=== PATIENT | male | born 1990 | race Caucasian/White ===

== ENCOUNTER 2024-03-27 10:40 | Observation (INO) ==
--- NOTE | 2024-03-27 11:13 | Emergency Department Note ---
History of Present Illness General Chief complaint: Back Injury/Pain Stated complaint: BACK PAIN, UNABLE TO AMBULATE Time Seen by Provider: 03/27/24 10:45 History of Present Illness Maximum Pain Intensity: 7 NAME: NILSA OLMOS AGE: 33 SEX: M : 1990 ARRIVES VIA: Ambulance INFORMANT: Patient ED PROVIDER(S): FABBY Patel, Kailash Garcia MD The patient is a 33-year-old male who arrives to the emergency department for evaluation of diffuse low back pain. He reports he pulled his low back a few weeks ago, and states he has been having some left hip pain. He reports his left hip was tight yesterday while he was at [facility] [employer], he states he was attempting to hold onto the railing on the dock and stretch his back when he began to have a severe spasm. He reports he went home, and last night over the night it became significantly worse. He reports at this time he is unable to ambulate on his own. He denies any numbness or tingling of his lower extremities, groin, or loss of bowel or bladder. He has full strength in bilateral lower extremities, he is neurovascularly intact. Home Medications Medication Instructions Recorded Confirmed Type cholecalciferol (vitamin D3) 125 125 mcg PO DAILY 03/27/24 03/27/24 History mcg (5,000 unit) tablet (Vitamin D3) clonazepam 0.5 mg tablet 0.5 mg PO HS PRN Anxiety 03/27/24 03/27/24 History ibuprofen 200 mg tablet 600 mg PO DIRECTED PRN Pain 03/27/24 03/27/24 History magnesium 250 mg tablet 250 mg PO DAILY 03/27/24 03/27/24 History multivitamin 1 tab PO DAILY 03/27/24 03/27/24 History Allergies Allergy/AdvReac Type Severity Reaction Status Date / Time methylphenidate Allergy Unknown HAPPENED Verified 03/27/24 15:22 [From Ritalin] 25 YEARS AGO, CAN'T REMEMBER Past Med/Surg History Problem List (Updated 03/27/24 @ 15:58 by FABBY Talbert) Intractable back pain (Acute) Ambulatory dysfunction (Acute) Strain of lumbar region (Acute) Social History Smoking Status: Unknown if ever smoked Feels Safe at Home: Yes Physical Exam Vital Signs Vital Signs - 24 hr 03/27/24 10:56 03/27/24 10:56 03/27/24 12:35 Temperature 37.2 C Temperature Source Oral Pulse Rate 73 Pulse Rate [Finger] 66 Pulse Rhythm Regular Pulse Rhythm [Finger] Pulse Strength Normal Respiratory Rate 18 18 18 Respiratory Effort / Characteristics Non-Labored Non-Labored Respiratory Depth Normal Normal Respiratory Pattern Blood Pressure 140/97 Blood Pressure [Right Arm] 126/69 Blood Pressure Mean 111 Blood Pressure Mean [Right Arm] 88 Pulse Oximetry 98 97 Oxygen Delivery Method Room Air Sepsis Recent Fever Within 48 Hours No Sepsis New/Unexplained Change in Mental Status No Sepsis Action Taken by Nursing No Action Required 03/27/24 15:33 Temperature Temperature Source Pulse Rate Pulse Rate [Finger] 109 H Pulse Rhythm Pulse Rhythm [Finger] Regular Pulse Strength Respiratory Rate 18 Respiratory Effort / Characteristics Non-Labored Respiratory Depth Normal Respiratory Pattern Regular Blood Pressure Blood Pressure [Right Arm] 137/75 Blood Pressure Mean Blood Pressure Mean [Right Arm] 95 Pulse Oximetry 98 Oxygen Delivery Method Room Air Sepsis Recent Fever Within 48 Hours Sepsis New/Unexplained Change in Mental Status Sepsis Action Taken by Nursing VITALS: Vitals are noted on the nurse's note and reviewed by myself. Vital signs stable. GENERAL: 33-year-old male, in no acute distress, nondiaphoretic, well-developed well-nourished. SKIN: The skin was without rashes, erythema, edema, or bruising. HEAD: Normocephalic atraumatic. HEART: Regular rate and rhythm without murmurs gallops or rubs. LUNGS: Clear to auscultation bilaterally without wheezes, rales or rhonchi. No retractions or accessory muscle use. ABDOMEN: Positive bowel sounds x 4. Soft, nontender, without masses or organomegaly. Hamlin sign negative. No guarding or rebound tenderness. MUSCULOSKELETAL: Bilateral straight leg raise positive, no loss of sensation bilaterally, full strength bilaterally, distal pulses intact, full range of motion left hip, full range of motion right hip, flexion and extension, rotation of lumbar spine painful. NEURO: Patient was alert and oriented to person place and time. No focal neurological deficits. Course Administered Medications Discontinued Medications Acetaminophen (Acetaminophen 500 Mg Tab) 1,000 mg PO NOW STA Stop: 03/27/24 11:20 Last Admin: 03/27/24 11:38 Dose: 1,000 mg Documented By: NILAM Cyclobenzaprine HCl (Cyclobenzaprine Hcl 10 Mg Tab) 10 mg PO NOW STA Stop: 03/27/24 11:20 Last Admin: 03/27/24 11:38 Dose: 10 mg Documented By: NILAM Dexamethasone Sodium Phosphate (DexamethasonePf 10 Mg/Ml Vial) 10 mg IV NOW ONE Stop: 03/27/24 11:36 Last Admin: 03/27/24 11:42 Dose: 10 mg Documented By: NILAM Ketorolac Tromethamine (Ketorolac Tromethamine 15 Mg/Ml Vial) 10 mg IV ONE STA Stop: 03/27/24 11:20 Last Admin: 03/27/24 11:37 Dose: 10 mg Documented By: NILAM Lidocaine (Lidocaine 5% 1 Patch) 1 patch TD NOW STA Stop: 03/27/24 11:21 Last Admin: 03/27/24 11:42 Dose: 1 patch Documented By: NILAM Morphine Sulfate (Morphine Sulfate 4 Mg/Ml 1 Ml Carp\Vial) 4 mg IV NOW STA Stop: 03/27/24 15:27 Last Admin: 03/27/24 15:32 Dose: 4 mg Documented By: CEFERINO Oxycodone HCl (Oxycodone Hcl Ir 5 Mg Tab (Immediate Release)) 5 mg PO NOW STA Stop: 03/27/24 11:20 Last Admin: 03/27/24 11:38 Dose: 5 mg Documented By: NILAM Medical Decision Making Differential Diagnosis Musculoskeletal, disc herniation, fracture, metastatic disease, cord compression, discitis, sciatica, cauda equina, infection, aortic disease, renal colic, gastrointestinal, as well as other pathologies. Medical Records Attestation: I reviewed the patient's medical records. Home Medications Current Medication List: was personally reviewed by me Laboratory Data Attestation: I reviewed the patient's lab results. No leukocytosis, stable hemoglobin and hematocrit, no significant electrolyte abnormalities, urinalysis negative for infection. 03/27/24 11:50 03/27/24 11:50 Lab Results 03/27/24 03/27/24 Range/Units 11:30 11:50 WBC 8.35 (4.8-10.8) K/ul RBC 5.23 (4.70-6.10) M/uL Hgb 16.0 (14.0-18.0) g/dl Hct 45.3 (42.0-52.0) % MCV 86.6 (80.0-100.0) fL MCH 30.6 (25.0-34.0) pg MCHC 35.3 (32.0-36.0) g/dL RDW Std Deviation 38.0 (36.4-46.3) fL RDW Coeff of Maribeth 12.1 (11.5-14.5) % Plt Count 278 (130-400) K/uL MPV 10.3 (9.4-12.4) fL Immature Gran % (Auto) 0.6 % Neut % (Auto) 71.0 % Lymph % (Auto) 20.2 % [place] % (Auto) 6.1 % Eos % (Auto) 1.4 % Baso % (Auto) 0.7 % Neut # (Auto) 5.92 (1.40-6.50) K/uL Lymph # (Auto) 1.69 (1.20-3.40) K/uL [place] # (Auto) 0.51 (0.11-0.59) K/uL Eos # (Auto) 0.12 (0.00-0.50) K/uL Baso # (Auto) 0.06 (0.00-0.20) K/uL Immature Gran # (Auto) 0.05 (0.01-0.20) K/uL Sodium 138 (136-145) mmol/L Potassium 3.9 (3.5-5.1) mmol/L Chloride 105 (98-107) mmol/L Carbon Dioxide 27 (21-32) mmol/L Anion Gap 6 (3-11) BUN 13 (6-23) mg/dl Creatinine 0.92 (0.6-1.4) mg/dl Est Cr Clr Drug Dosing 142.4 ml/min Est GFR ( Amer) 127.1 ml/min Est GFR (Non-Af Amer) 109.7 ml/min BUN/Creatinine Ratio 14.1 (10-20) Glucose 106 H (70-99(Fasting)) mg/dl Calcium 9.4 (8.6-10.3) mg/dl Urine Color Yellow Urine Appearance Clear (Clear) Urine pH 7.0 (4.5-7.5) Ur Specific Kingsley 1.014 (1.000-1.030) Urine Protein Negative (Negative) Urine Glucose (UA) Negative (Negative) Urine Ketones Negative (Negative) Urine Blood Negative (Negative) Urine Nitrite Negative (Negative) Urine Bilirubin Negative (Negative) Urine Urobilinogen Negative (Negative) Ur Leukocyte Esterase Negative (Negative) Imaging Data Attestation: I personally reviewed and interpreted this imaging study as follows: Radiologist's Impression: Lumbar Spine CT 03/27/24 11:20 CT SCAN OF THE LUMBAR SPINE WITHOUT CONTRAST CLINICAL HISTORY: Low back pain. COMPARISON STUDY: No priors. TECHNIQUE: CT scan of the lumbar spine was performed from the lower thoracic spine to the sacrum. Images are reviewed in the axial, sagittal, and coronal planes. IV contrast was not administered for this examination. A dose lowering technique was utilized adhering to the principles of ALARA. CT DOSE: 1150.89 mGy.cm FINDINGS: The skeletal structures are well-mineralized. There is no evidence of fracture or malalignment involving the lumbar spine. Tiny anterior osteophytes are seen throughout. The transverse and spinous processes are intact. There is no spondylolysis. No lytic or blastic lesion is seen. The disc spaces are maintained. There is broad-based posterior disc bulge at L4-L5. This causes at least mild central canal stenosis at this level. Minimal posterior disc bulge is seen at L5-S1. There is no CT evidence of high-grade neural foraminal stenosis throughout the lumbar region. The visualized sacrum and bony pelvis appear intact. The paraspinous soft tissues are within normal limits. A normal appendix is partially visualized in the right lower quadrant. There is no retroperitoneal lymphadenopathy. IMPRESSION: 1. No acute bony abnormality is seen involving the lumbar spine. 2. Degenerative disc disease at L4-L5 and L5-S1 as above. ACT 112: Negative or not required by law. Dictated: 03/27/2024 11:34 AM Transcribed: 03/27/2024 12:31 PM Julio [id number] Electronically signed by: Kailash Espinoza M.D. 03/27/2024 12:31 PM Blood Pressure Blood Pressure Findings: Normal blood pressure MDM Narrative Patient is a pleasant 33-year-old male who arrives to the emergency department for evaluation of the above-stated complaint. Upon examination the patient is exhibiting severe low back pain with ambulatory dysfunction. A saline lock was established, CBC, BMP, urinalysis were obtained. CBC shows no leukocytosis, stable hemoglobin and hematocrit, CMP was unremarkable, urinalysis shows no signs of infection. The patient was provided IV Toradol, oral cyclobenzaprine, oral Tylenol, topical Lidoderm, and IV dexamethasone. CT imaging of the lumbar spine was obtained which shows degenerative disc disease at L4-L5 and L5-S1. Mild central canal stenosis at L4-L5, with a broad-based posterior disc bulge. Minimal posterior disc bulge at L5-S1, no CT evidence of high-grade neural foraminal stenosis throughout the lumbar region. An ambulatory trial was performed which was unsuccessful due to severe pain. I contacted the natural gas treating unit operator to facilitate contact with Dr. Vasquez from orthopedic spine. He did recommend MRI imaging, and agreed to consult on the patient during his admission. Case management was contacted regarding the need for admission for ambulatory dysfunction, and intractable back pain. Dr. Galindo from the [facility] agreed to accept the patient for admission. Please refer to their documentation for further patient care. Impression & Plan Strain of lumbar region, Ambulatory dysfunction, Intractable back pain Discharge Plan Visit Data Chief Complaint: Back Injury/Pain Stated Complaint: BACK PAIN, UNABLE TO AMBULATE ED Provider: Kailash Garcia ED Midlevel Provider: Leonarda Solano Discharge Problem: Strain of lumbar region, Ambulatory dysfunction, Intractable back pain Forms Stand Alone Forms: My [facility] [id number] Digital Prescriptions Prescriptions: No Action multivitamin Tablet 1 tab PO DAILY clonazepam 0.5 mg tablet 0.5 mg PO HS PRN (Reason: Anxiety) ibuprofen 200 mg Tablet 600 mg PO DIRECTED PRN (Reason: Pain) magnesium 250 mg Tablet 250 mg PO DAILY cholecalciferol (vitamin D3) [Vitamin D3] 125 mcg (5,000 unit) Tablet 125 mcg PO DAILY Referrals Referrals: PCP,NO [Physician] - Discharge Problem: Strain of lumbar region Qualifiers: Encounter type: initial encounter Qualified Code(s): S39.012A - Strain of muscle, fascia and tendon of lower back, initial encounter
[2024-03-27] MEDS: KETOROLAC TROMETHAMINE 15 MG/ML VIAL IV STA (11:37)
[2024-03-27] MEDS: oxyCODONE HCL IR 5 MG TAB (IMMEDIATE RELEASE) PO STA (11:38)
[2024-03-27] MEDS: CYCLOBENZAPRINE HCL 10 MG TAB PO STA (11:38)
[2024-03-27] MEDS: ACETAMINOPHEN 500 MG TAB PO STA (11:38)
[2024-03-27 11:42] LABS: Appearance Urine Clear (Clear); Bilirubin Urine Negative (Negative); Blood Urine Negative (Negative); Color Urine Yellow; Glucose Urine UA Negative (Negative); Ketones Urine Negative (Negative); Leukocyte Esterase Urine Negative (Negative); Nitrite Urine Negative (Negative); Protein Urine Negative (Negative); Specific Gravity Urine 1.014 (1.000-1.030); Urobilinogen Urine Negative (Negative)
[2024-03-27] MEDS: LIDOCAINE 5% 1 PATCH TD STA (11:42)
[2024-03-27] MEDS: dexAMETHasone**PF** 10 MG/ML VIAL IV ONE (11:42)
[2024-03-27 12:06] LABS: Basophils # (auto) 0.06 K/uL (0.00-0.20); Basophils % (auto) 0.7 %; Eosinophils # (auto) 0.12 K/uL (0.00-0.50); Eosinophils % (auto) 1.4 %; Hematocrit (blood only) 45.3 % (42.0-52.0); Immature Granulocytes # (auto) 0.05 K/uL (0.01-0.20); Immature Granulocytes % (auto) 0.6 %; Lymphocytes # (auto) 1.69 K/uL (1.20-3.40); Lymphocytes % (auto) 20.2 %; Mean Corpuscular Hemoglobin 30.6 pg (25.0-34.0); Mean Corpuscular Hgb Conc 35.3 g/dL (32.0-36.0); Mean Corpuscular Volume 86.6 fL (80.0-100.0); Mean Platelet Volume 10.3 fL (9.4-12.4); Monocytes # (auto) 0.51 K/uL (0.11-0.59); Monocytes % (auto) 6.1 %; Neutrophils # (auto) 5.92 K/uL (1.40-6.50); Platelet Count 278 K/uL (130-400); RDW Coefficient of Variation 12.1 % (11.5-14.5); Red Blood Count 5.23 M/uL (4.70-6.10); White Blood Count 8.35 K/ul (4.8-10.8)
[2024-03-27 12:30] LABS: BUN Creatinine Ratio 14.1 (10-20); Calcium 9.4 mg/dl (8.6-10.3); Creatinine Clr Calc Pharmacy 142.4 ml/min; Est GFR (African American) 127.1 ml/min; Est GFR (Non-African American) 109.7 ml/min; Potassium 3.9 mmol/L (3.5-5.1)
--- NOTE | 2024-03-27 12:33 | CT Scan Report ---
CT SCAN OF THE LUMBAR SPINE WITHOUT CONTRAST CLINICAL HISTORY: Low back pain. COMPARISON STUDY: No priors. TECHNIQUE: CT scan of the lumbar spine was performed from the lower thoracic spine to the sacrum. Verna ges are reviewed in the axial, sagittal, and coronal planes. IV contrast was not administered for thi s examination. A dose lowering technique was utilized adhering to the principles of ALARA. CT DOSE: 1150.89 mGy.cm FINDINGS: The skeletal structures are well-mineralized. There is no evidence of fracture or malalignm ent involving the lumbar spine. Tiny anterior osteophytes are seen throughout. The transverse and spi nous processes are intact. There is no spondylolysis. No lytic or blastic lesion is seen. The disc sp aces are maintained. There is broad-based posterior disc bulge at L4-L5. This causes at least mild ce ntral canal stenosis at this level. Minimal posterior disc bulge is seen at L5-S1. There is no CT john dence of high-grade neural foraminal stenosis throughout the lumbar region. The visualized sacrum and bony pelvis appear intact. The paraspinous soft tissues are within normal limits. A normal appendix is partially visualized in the right lower quadrant. There is no retroperitoneal lymphadenopathy. IMPRESSION: 1. No acute bony abnormality is seen involving the lumbar spine. 2. Degenerative disc disease at L4-L5 and L5-S1 as above. ACT 112: Negative or not required by law. Dictated: 03/27/2024 11:34 AM Transcribed: 03/27/2024 12:31 PM Julio [id number] Electronically signed by: Kailash Espinoza M.D. 03/27/2024 12:31 PM
[2024-03-27] MEDS: MoRPHine SULFATE 4 MG/ML 1 ML CARP\\VIAL IV STA (15:32)
--- NOTE | 2024-03-27 16:45 | Magnetic Resonance Report ---
LUMBAR SPINE MRI HISTORY: lumbar pain TECHNIQUE: Multiplanar multisequence MRI of the lumbar spine was performed without the use of contras t. COMPARISON: Lumbar spine CT 03/27/2024. FINDINGS: For the purpose of the report the L5-S1 disc space will be located on axial image 23 of 25. Straightening of the lumbar spine. No fracture or subluxation. Small Schmorl's node at the superior e ndplate of L4. Mild disc desiccation disc space narrowing at L4-L5. The remaining disc spaces are pre served. The conus terminates at the T12 level. Paravertebral soft tissues are unremarkable. Mild face t degenerative changes at L4-L5. L1-L2: No significant central canal or neural foraminal narrowing. L2-L3: No significant central canal or neural foraminal narrowing. L3-L4: Small broad-based posterior disc bulge without significant central canal or neural foraminal n arrowing. L4-L5: Small broad-based posterior disc bulge with a 3 mm left paracentral focal disc protrusion. Thi s results in mild central canal and mild bilateral neural foraminal narrowing. This disc protrusion i mpinges the transiting left L5 nerve roots on axial image 19. L5-S1: No significant central canal or neural foraminal narrowing. IMPRESSION: 1. Straightening of the lumbar spine. No fracture or subluxation. 2. A broad-based posterior disc bulge at L4-5 with a 3 mm left paracentral focal disc protrusion. Thi s impinges the transiting left L5 nerve roots. 3. Additional degenerative changes as described above. ACT 112: Negative or not required by law. Electronically signed by: Henry Miguel M.D. 03/27/2024 4:44 PM
--- NOTE | 2024-03-27 17:08 | History & Physical Report ---
Date of Service March 27, 2024 Assessment & Plan (1) Protrusion of lumbar intervertebral disc: (2) Intractable back pain: Plan: Admit to [facility] Patient presenting for evaluation of intractable back pain In the ED, patient received Tylenol, Flexeril, dexamethasone, ketorolac, lidocaine patch, morphine, oxycodone and continues to have significant pain and is unable to ambulate Lumbar spine MRI shows A broad-based posterior disc bulge at L4-5 with a 3 mm left paracentral focal disc protrusion. This impinges the transiting left L5 nerve roots. Spine ortho consult - discussed with Dr. Vasquez who recommends IV Decadron Also will start scheduled Valium and PRN ketorolac and oxycodone for breakthrough pain DVT PROPHYLAXIS SCDs Patient was seen in collaboration with Dr. Galindo. I spent a total of 60 minutes coordinating, documenting, and providing care for this patient excluding time spent in the performance of separately billed services. This included personally reviewing all current laboratories and imaging studies, medication reconciliation, outpatient chart review, and discussion with specialists. History of Present Illness Chief Complaint: back pain Primary Care Provider: Terrell Rubio 33-year-old male without significant past medical history who presents to the ED for evaluation of back pain. History is obtained from the patient. Patient reports that over the past 2 weeks, he has had low back pain. He denies any s pecific known injury. Patient is currently visiting from out of the area. He was out fishing last evening when he tried to stretch his back out by grabbing a bar and squatting down. Patient states whenever he squatted down he had immediate left-sided low back pain with radiation into the left hip. Pain progressed into today and patient was unable to walk. He presented to the ED via ambulance. Patient denies bowel and bladder dysfunction. No numbness, weakness, tingling to lower extremities. He denies chest pain and shortness of breath. No lightheadedness, dizziness, diaphoresis, syncopal events. No abdominal pain, nausea, vomiting, diarrhea. Denies fevers and chills. In the ED, patient had lumbar spine CT that suggested L4-L5 disc bulge. Follow-up MRI showed a broad-based posterior disc bulge at L4-5 with a 3 mm left paracentral focal disc protrusion. This impinges the transiting left L5 nerve roots. Patient was given oral Tylenol, Flexeril, IV dexamethasone 10 mg, IV ketorolac 10 mg, Lidoderm patch, IV morphine 4 mg, oxycodone 5 mg and continues to have significant pain and is unable to ambulate. Allergies Allergy/AdvReac Type Severity Reaction Status Date / Time methylphenidate Allergy Unknown HAPPENED Verified 03/27/24 15:22 [From Ritalin] 25 YEARS AGO, CAN'T REMEMBER Home Medications Medication Instructions Recorded Confirmed Type cholecalciferol (vitamin D3) 125 125 mcg PO DAILY 03/27/24 03/27/24 History mcg (5,000 unit) tablet (Vitamin D3) clonazepam 0.5 mg tablet 0.5 mg PO HS PRN Anxiety 03/27/24 03/27/24 History ibuprofen 200 mg tablet 600 mg PO DIRECTED PRN Pain 03/27/24 03/27/24 History magnesium 250 mg tablet 250 mg PO DAILY 03/27/24 03/27/24 History multivitamin 1 tab PO DAILY 03/27/24 03/27/24 History Past Med/Surg History Problem List (Updated 03/27/24 @ 16:59 by FABBY Brown) Protrusion of lumbar intervertebral disc Intractable back pain (Acute) Ambulatory dysfunction (Acute) Strain of lumbar region (Acute) Medical History (Updated 03/27/24 @ 16:59 by FABBY Brown) No pertinent past medical history Surgical History (Updated 03/27/24 @ 16:59 by FABBY Brown) No pertinent past surgical history Social History Smoking Status: Former smoker Tobacco Type: Cigarettes Hx Alcohol Use: Yes Alcohol type: beer Hx Substance Use: Yes Last Used Substance Other:: reports having used marijuana "long time ago" Preferred Language: Setswana Communication Ability: Effective Anaesthesiologist Required: No Beliefs That Will Affect Care: None Current Living Situation: Family 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 Other Information That Helps Us Care for You: No Feels Safe at Home: Yes Safety Concerns: Feels Safe At This Time Review of Systems Review of Systems: ROS per HPI, all other systems reviewed and negative Physical Exam Constitutional: WD/WN, vitals as above no acute distress Eyes: PERRL, conjunctivae normal, anicteric sclerae ENMT: external ear and nose normal, oropharynx normal Respiratory: normal respiratory effort, lungs clear to auscultation Cardiovascular: Rate/Rhythm: regular rate and regular rhythm Vessels: normal peripheral pulses Extremities: no edema Gastrointestinal (Abdomen): normal bowel sounds, soft, nontender, no hepatosplenomegaly Musculoskeletal: Spine: + straight leg raise positive strength strong and equal BLE Skin: no rashes, warm and dry Neurologic: PERRL, EOMI, accommodation nl, no face palsy, no dysarthria Psychiatric: A+Ox3, euthymic affect Results & Data Results & Data Vital Signs (Past 12 Hours) Vital Signs Temp Pulse Pulse Resp BP BP Pulse Ox 03/27/24 15:33 109 H 18 137/75 98 03/27/24 12:35 66 18 126/69 97 03/27/24 10:56 18 03/27/24 10:56 37.2 C 73 18 140/97 98 O2 Del Method 03/27/24 15:33 Room Air 03/27/24 12:35 03/27/24 10:56 03/27/24 10:56 Room Air Laboratory Results Short CBC 03/27/24 Range/Units 11:50 WBC 8.35 (4.8-10.8) K/ul Hgb 16.0 (14.0-18.0) g/dl Hct 45.3 (42.0-52.0) % Plt Count 278 (130-400) K/uL BMP 03/27/24 11:50 Sodium 138 Potassium 3.9 Chloride 105 Carbon Dioxide 27 BUN 13 Creatinine 0.92 Glucose 106 H Calcium 9.4 Urine 03/27/24 Range/Units 11:30 Urine Color Yellow Urine Appearance Clear (Clear) Urine pH 7.0 (4.5-7.5) Ur Specific Rand 1.014 (1.000-1.030) Urine Protein Negative (Negative) Urine Glucose (UA) Negative (Negative) Diagnostic Findings Lumbar Spine CT 03/27/24 11:20 CT SCAN OF THE LUMBAR SPINE WITHOUT CONTRAST CLINICAL HISTORY: Low back pain. COMPARISON STUDY: No priors. TECHNIQUE: CT scan of the lumbar spine was performed from the lower thoracic spine to the sacrum. Images are reviewed in the axial, sagittal, and coronal planes. IV contrast was not administered for this examination. A dose lowering technique was utilized adhering to the principles of ALARA. CT DOSE: 1150.89 mGy.cm FINDINGS: The skeletal structures are well-mineralized. There is no evidence of fracture or malalignment involving the lumbar spine. Tiny anterior osteophytes are seen throughout. The transverse and spinous processes are intact. There is no spondylolysis. No lytic or blastic lesion is seen. The disc spaces are maintained. There is broad-based posterior disc bulge at L4-L5. This causes at least mild central canal stenosis at this level. Minimal posterior disc bulge is seen at L5-S1. There is no CT evidence of high-grade neural foraminal stenosis throughout the lumbar region. The visualized sacrum and bony pelvis appear intac t. The paraspinous soft tissues are within normal limits. A normal appendix is partially visualized in the right lower quadrant. There is no retroperitoneal lymphadenopathy. IMPRESSION: 1. No acute bony abnormality is seen involving the lumbar spine. 2. Degenerative disc disease at L4-L5 and L5-S1 as above. ACT 112: Negative or not required by law. Dictated: 03/27/2024 11:34 AM Transcribed: 03/27/2024 12:31 PM Julio [id number] [id number] Electronically signed by: Kailash Espinoza M.D. 03/27/2024 12:31 PM Lumbar Spine MRI 03/27/24 15:03 LUMBAR SPINE MRI HISTORY: lumbar pain TECHNIQUE: Multiplanar multisequence MRI of the lumbar spine was performed without the use of contrast. COMPARISON: Lumbar spine CT 03/27/2024. FINDINGS: For the purpose of the report the L5-S1 disc space will be located on axial image 23 of 25. Straightening of the lumbar spine. No fracture or subluxation. Small Schmorl's node at the superior endplate of L4. Mild disc desiccation disc space narrowing at L4-L5. The remaining disc spaces are preserved. The conus terminates at the T12 level. Paravertebral soft tissues are unremarkable. Mild facet degenerative changes at L4-L5. L1-L2: No significant central canal or neural foraminal narrowing. L2-L3: No significant central canal or neural foraminal narrowing. L3-L4: Small broad-based posterior disc bulge without significant central canal or neural foraminal narrowing. L4-L5: Small broad-based posterior disc bulge with a 3 mm left paracentral focal disc protrusion. This results in mild central canal and mild bilateral neural foraminal narrowing. This disc protrusion impinges the transiting left L5 nerve roots on axial image 19. L5-S1: No significant central canal or neural foraminal narrowing. IMPRESSION: 1. Straightening of the lumbar spine. No fracture or subluxation. 2. A broad-based posterior disc bulge at L4-5 with a 3 mm left paracentral focal disc protrusion. This impinges the transiting left L5 nerve roots. 3. Additional degenerative changes as described above. ACT 112: Negative or not required by law. Electronically signed by: Henry Miguel M.D. 03/27/2024 4:44 PM Code Status & VTE Plan VTE Prophylaxis Plan VTE Prophylaxis will be ordered: Yes Supervising Physician Co-Signing Physician Notes Attending Addendum: Case reviewed with the advanced practitioner. I have personally performed a history and physical examination on the patient. I have reviewed the advanced practitioner's documentation on the date of service referenced in note, and I agree with, and take responsibility for the plan of care. please refer to her notes for full details patient seen and examined, records reviewed by myself as well on exam, patient seen resting in bed still having low back pain with left leg radiation just given IV Decadron no other symptoms VS noted and reviewed oriented x 3, not in distress, speaks in sentences with no effort nor accessory muscle use normal rate, regular rhythm, no murmurs clear breath sounds bilaterally non distended, soft, nontender no bipedal edema, erythema, warmth no neuro deficits all labs, imaging noted and reviewed ASSESSMENT AND PLAN Intractable Low Back Pain, Radiculopathy Disc bulge at L4-5 with a 3 mm left paracentral focal disc protrusion IV Decadron, Valium, Tylenol PRN Oxycodone Ortho Spine consulted PT/OT eval other diagnoses and plan of care as per advanced practitioner's notes Huey Galindo MD
[2024-03-27] MEDS ORDERED: DEXAMETHASONE SOD INJ 4 MG/ML VIAL IV SCH (19:18)
[2024-03-27] MEDS ORDERED: KETOROLAC TROMETHAMINE 15 MG/ML VIAL IV PRN (19:18)
[2024-03-27] MEDS: diazePAM 2 MG TABLET PO SCH (20:21)
[2024-03-27] MEDS: ACETAMINOPHEN 500 MG TAB PO SCH (20:21)
[2024-03-27] MEDS: dexAMETHasone 8 MG in SYRINGE 0 ML IV SCH (20:24)
--- NOTE | 2024-03-28 09:10 | Orthopedic Consultation ---
Date of Consultation March 28, 2024 Assessment & Plan (1) Protrusion of lumbar intervertebral disc: MRI lumbar spine from yesterday available for review. Does demonstrate beginnings of degenerative disc disease L4-5 with disc protrusion on the left. There is no severe spinal stenosis. Plan at this time his symptoms appear to be mostly axial in nature. This could be related to the annular bulge and acute back symptoms. Will initiate a course of physical therapy to begin with ambulation. Ideally he will be able to discharge home today or tomorrow as he lives in [facility]. His family is leaving Saturday. There is no indication for surgical invention at this time History of Present Illness Reason for Consultation: Acute low back pain Attending Physician: Julissa Gaspar MD History of Present Illness This very pleasant 33-year-old male who presents to the hospital yesterday after an episode of acute incapacitating back pain. He states he has intermittent history of back issues over the years. He does work at [employer]. This is highly physical occupation. He is recovering from a knee injury and has had so me gait abnormality for the past several weeks that may have contributed to his back pain. He states most of his symptoms is at the lumbosacral junction radiating to the left buttock. He denies any clear radicular complaints. Denies any numbness or tingling in the legs. Is not been out of bed yet. Allergies Allergy/AdvReac Type Severity Reaction Status Date / Time methylphenidate Allergy Unknown HAPPENED Verified 03/27/24 15:22 [From Ritalin] 25 YEARS AGO, CAN'T REMEMBER Home Medications Medication Instructions Recorded Confirmed Type cholecalciferol (vitamin D3) 125 125 mcg PO DAILY 03/27/24 03/27/24 History mcg (5,000 unit) tablet (Vitamin D3) clonazepam 0.5 mg tablet 0.5 mg PO HS PRN Anxiety 03/27/24 03/27/24 History ibuprofen 200 mg tablet 600 mg PO DIRECTED PRN Pain 03/27/24 03/27/24 History magnesium 250 mg tablet 250 mg PO DAILY 03/27/24 03/27/24 History multivitamin 1 tab PO DAILY 03/27/24 03/27/24 History Patient History Medical History (Updated 03/27/24 @ 16:59 by FABBY Brown) No pertinent past medical history Surgical History (Updated 03/27/24 @ 16:59 by FABBY Brown) No pertinent past surgical history Social History Smoking Status: Former smoker Tobacco Type: Cigarettes Hx Alcohol Use: Yes Alcohol type: beer Hx Substance Use: Yes Last Used Substance Other:: reports having used marijuana "long time ago" Preferred Language: Gambian Communication Ability: Effective Flour Worker Required: No Beliefs That Will Affect Care: None Current Living Situation: Family 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 5/5 plantarflexion dorsiflexion quadriceps. Sensory symmetrically intact. He has some tension of the back with straight leg raising bilaterally. Results & Data Vital Signs (Past 12 Hours) Vital Signs Temp Pulse Resp BP Pulse Ox O2 Del Method 03/28/24 07:59 Room Air 03/28/24 06:58 36.9 C 63 16 125/64 96 Room Air
[2024-03-28] MEDS ORDERED: CYCLOBENZAPRINE HCL 10 MG TAB PO PRN (14:05)
[2024-03-28] MEDS: LIDOCAINE 5% 1 PATCH TD STA (14:39)
[2024-03-28] MEDS: KETOROLAC 30 MG/ML VIAL IV ONE (14:46)
--- NOTE | 2024-03-28 14:49 | Hospitalist Progress Note ---
Date of Service March 28, 2024 Assessment & Plan (1) Protrusion of lumbar intervertebral disc: (2) Intractable back pain: (3) Ambulatory dysfunction: Plan Pt is a 33yoM admitted with intractable back pain in the setting of DDD and left disc protrusion at L4-L5. Degenerative Disc Disease L4-L5 disc protrusion Pt presenting with intractable back pain Lumbar spine CT and MRI lumbar spine noting DDD and left disc protrusion at L4- L5. Pain Control- pt prefers to use non narcotic/benzo options as he has to drive home Ortho spine consulted, appreciate recs -no surgical intervention -PT Continue with scheduled tylenol, steroids, lidocaine patch. Pt prefers PRN ibuprofen rather than IV toradol, 600mg TID NH ordered Continue with PRN Flexeril, oxycodone PPI given steroid +NSAID use Discontinue scheduled valium Continue to monitor Diet: regular DVT prophylaxis :SCDs Dispo: pt wants discharge in the AM, PT ordered by surgical team. Appreciate dispo recs Admission and Anticipated Discharge Date Admission Date: March 27, 2024 Subjective pt was seen laying in bed. anxious for dischage but notes that he had some difficulty sitting up in bed and getting up to move. Notes he will be driving home for 2.5 hrs as his partner does not drive. Asking about being taken off the Valium to help facilitate this. Agreeable to nonnarcotic measures to help get him home. per nursing pt requesting ibuprofen rather than toradol. Has been having heartburn. Also dizzy with the hiccups whenever he sits up Review of Systems Review of Systems: All systems reviewed & are unremarkable except as noted in Subjective Physical Exam Physical Exam: General: Alert, oriented. No acute distress Skin: No noted rashes or bruises Psych: Appropriate mood and affect Neuro:difficulty with movements in the bed HEENT: NC/AT CV: RRR Resp: Breath sounds clear bilaterally, no increased effort of breathing Abdomen:Soft, nontender, nondistended Extremities: No edema in lower extremities bilaterally. Results & Data Results & Data Vital Signs (Past 12 Hours) Vital Signs Temp Pulse Resp BP Pulse Ox O2 Del Method 03/28/24 07:59 Room Air 03/28/24 06:58 36.9 C 63 16 125/64 96 Room Air Diagnostic Findings Lumbar Spine CT 03/27/24 11:20 CT SCAN OF THE LUMBAR SPINE WITHOUT CONTRAST CLINICAL HISTORY: Low back pain. COMPARISON STUDY: No priors. TECHNIQUE: CT scan of the lumbar spine was performed from the lower thoracic spine to the sacrum. Images are reviewed in the axial, sagittal, and coronal planes. IV contrast was not administered for this examination. A dose lowering technique was utilized adhering to the principles of ALARA. CT DOSE: 1150.89 mGy.cm FINDINGS: The skeletal structures are well-mineralized. There is no evidence of fracture or malalignment involving the lumbar spine. Tiny anterior osteophytes are seen throughout. The transverse and spinous processes are intact. There is no spondylolysis. No lytic or blastic lesion is seen. The disc spaces are maintained. There is broad-based posterior disc bulge at L4-L5. This causes at least mild central canal stenosis at this level. Minimal posterior disc bulge is seen at L5-S1. There is no CT evidence of high-grade neural foraminal stenosis throughout the lumbar region. The visualized sacrum and bony pelvis appear intact. The paraspinous soft tissues are within normal limits. A normal appendix is partially visualized in the right lower quadrant. There is no retroperitoneal lymphadenopathy. IMPRESSION: 1. No acute bony abnormality is seen involving the lumbar spine. 2. Degenerative disc disease at L4-L5 and L5-S1 as above. ACT 112: Negative or not required by law. Dictated: 03/27/2024 11:34 AM Transcribed: 03/27/2024 12:31 PM Julio [id number] Electronically signed by: Kailash Espinoza M.D. 03/27/2024 12:31 PM Lumbar Spine MRI 03/27/24 15:03 LUMBAR SPINE MRI HISTORY: lumbar pain TECHNIQUE: Multiplanar multisequence MRI of the lumbar spine was performed without the use of contrast. COMPARISON: Lumbar spine CT 03/27/2024. FINDINGS: For the purpose of the report the L5-S1 disc space will be located on axial image 23 of 25. Straightening of the lumbar spine. No fracture or subluxation. Small Schmorl's node at the superior endplate of L4. Mild disc desiccation disc space narrowing at L4-L5. The remaining disc spaces are preserved. The conus terminates at the T12 level. Paravertebral soft tissues are unremarkable. Mild facet degenerative changes at L4-L5. L1-L2: No significant central canal or neural foraminal narrowing. L2-L3: No significant central canal or neural foraminal narrowing. L3-L4: Small broad-based posterior disc bulge without significant central canal or neural foraminal narrowing. L4-L5: Small broad-based posterior disc bulge with a 3 mm left paracentral focal disc protrusion. This results in mild central canal and mild bilateral neural foraminal narrowing. This disc protrusion impinges the transiting left L5 nerve roots on axial image 19. L5-S1: No significant central canal or neural foraminal narrowing. IMPRESSION: 1. Straightening of the lumbar spine. No fracture or subluxation. 2. A broad-based posterior disc bulge at L4-5 with a 3 mm left paracentral focal disc protrusion. This impinges the transiting left L5 nerve roots. 3. Additional degenerative changes as described above. ACT 112: Negative or not required by law. Electronically signed by: Henry Miguel M.D. 03/27/2024 4:44 PM
[2024-03-28] MEDS ORDERED: CALCIUM CARBONATE 500 MG CHEWABLE TAB PO PRN (14:59)
[2024-03-28] MEDS: IBUPROFEN 200 MG/10 ML UDC PO PRN (15:49)
[2024-03-28] MEDS: PANTOprazole 40 MG TAB PO SCH (19:40)
[2024-03-28] MEDS: oxyCODONE HCL IR 5 MG TAB (IMMEDIATE RELEASE) PO PRN (21:59)
[2024-03-29 06:29] LABS: Hemoglobin 15.7 g/dl (14.0-18.0); Mean Corpuscular Hemoglobin 30.2 pg (25.0-34.0); Mean Corpuscular Hgb Conc 34.9 g/dL (32.0-36.0); Mean Corpuscular Volume 86.5 fL (80.0-100.0); Mean Platelet Volume 10.8 fL (9.4-12.4); Platelet Count 312 K/uL (130-400); RDW Coefficient of Variation 12.1 % (11.5-14.5); RDW Standard Deviation 38.4 fL (36.4-46.3); White Blood Count 19.81 K/ul (4.8-10.8)
[2024-03-29 06:39] LABS: Albumin Globulin Ratio 1.4 (0.9-2); Albumin Level 4.2 gm/dl (3.4-5.0); BUN Creatinine Ratio 21.1 (10-20); Bilirubin,Total 0.5 mg/dl (0.2-1.0); Calcium 8.9 mg/dl (8.6-10.3); Creatinine Clr Calc Pharmacy 145.6 ml/min; Est GFR (African American) 130.5 ml/min; Est GFR (Non-African American) 112.6 ml/min; Globulin 2.9 gm/dl (2.5-4.0); Phosphorus 4.5 mg/dl (2.5-4.9); Potassium 3.9 mmol/L (3.5-5.1); Total Protein 7.1 gm/dl (6.0-8.3)
--- NOTE | 2024-03-29 10:48 | Discharge Summary ---
Discharge Summary Date of Service March 29, 2024 Principal Dx & Hospital Course #1 = Principal Diagnosis (1) Protrusion of lumbar intervertebral disc: (2) Intractable back pain: (3) Ambulatory dysfunction: Plan Pt is a 33yoM admitted with intractable back pain in the setting of DDD and left disc protrusion at L4-L5. Degenerative Disc Disease L4-L5 disc protrusion Pt presenting with intractable back pain Lumbar spine CT and MRI lumbar spine noting DDD and left disc protrusion at L4- L5. Pain Control- pt prefers to use non narcotic/benzo options as he has to drive home. He was initially treated with scheduled tylenol, valium and Dexamethasone with prn ibuprofen (per pt request instead of IV toradol) and prn oxycodone and flexeril. Also had a lidocaine patch. Pt discharged with the following: prednisone taper 40mg, decreasing by 10mg every 3 days scheduled tylenol 1000mg TID until pcp f/u ibuprofen 600mg TID PRN flexeril 10mg TID PRN oxycodone 5mg q8h PRN for SEVERE pain only lidocaine patch Ortho spine consulted, appreciate recs -no surgical intervention -PT- pt worked with PT and was able to ambulate the halls with improved pain on the day of discharge Pt was placed on a PPI given steroid +NSAID use. Discharged with the same until pcp followup. Please ensure close ortho spine followup after discharge and that pt continues to work with PT. Notes For Next Care Provider please ensure followup with physical therapy Please ensure ortho spine followup Medication Changes From Visit prednisone taper 40mg, decreasing by 10mg every 3 days scheduled tylenol 1000mg TID until pcp f/u ibuprofen 600mg TID PRN flexeril 10mg TID PRN oxycodone 5mg q8h PRN for SEVERE pain only lidocaine patch pantprazole 40mg BID while on steroids + NSAID Admission HPI Per Admitting Provider 33-year-old male without significant past medical history who presents to the ED for evaluation of back pain. History is obtained from the patient. Patient reports that over the past 2 weeks, he has had low back pain. He denies any specific known injury. Patient is currently visiting from out of the area. He was out fishing last evening when he tried to stretch his back out by grabbing a bar and squatting down. Patient states whenever he squatted down he had immediate left-sided low back pain with radiation into the left hip. Pain progressed into today and patient was unable to walk. He presented to the ED via ambulance. Patient denies bowel and bladder dysfunction. No numbness, weakness, tingling to lower extremities. He denies chest pain and shortness of breath. No lightheadedness, dizziness, diaphoresis, syncopal events. No abdominal pain, nausea, vomiting, diarrhea. Denies fevers and chills. In the ED, patient had lumbar spine CT that suggested L4-L5 disc bulge. Follow-up MRI showed a broad-based posterior disc bulge at L4-5 with a 3 mm left paracentral focal disc protrusion. This impinges the transiting left L5 nerve roots. Patient was given oral Tylenol, Flexeril, IV dexamethasone 10 mg, IV ketorolac 10 mg, Lidoderm patch, IV morphine 4 mg, oxycodone 5 mg and continues to have significant pain and is unable to ambulate. Admission Exam Per Admitting Provider Constitutional: WD/WN, vitals as above no acute distress Eyes: PERRL, conjunctivae normal, anicteric sclerae ENMT: external ear and nose normal, oropharynx normal Respiratory: normal respiratory effort, lungs clear to auscultation Cardiovascular: Rate/Rhythm: regular rate and regular rhythm Vessels: normal peripheral pulses Extremities: no edema Gastrointestinal (Abdomen): normal bowel sounds, soft, nontender, no hepatosplenomegaly Musculoskeletal: Spine: + straight leg raise positive strength strong and equal BLE Skin: no rashes, warm and dry Neurologic: PERRL, EOMI, accommodation nl, no face palsy, no dysarthria Psychiatric: A+Ox3, euthymic affect Discharge Exam General: Alert, oriented. No acute distress Skin: No noted rashes or bruises Psych: Appropriate mood and affect Neuro:difficulty with movements in the bed, straight leg raise positive on the left HEENT: NC/AT CV: RRR Resp: Breath sounds clear bilaterally, no increased effort of breathing Abdomen:Soft, nontender, nondistended Extremities: straight leg raise positive on the left Updated Medication List Medication Instructions Recorded Confirmed Type cholecalciferol (vitamin D3) 125 125 mcg PO DAILY 03/27/24 03/27/24 History mcg (5,000 unit) tablet (Vitamin D3) clonazepam 0.5 mg tablet 0.5 mg PO HS PRN Anxiety 03/27/24 03/27/24 History ibuprofen 200 mg tablet 600 mg PO DIRECTED PRN Pain 03/27/24 03/27/24 History magnesium 250 mg tablet 250 mg PO DAILY 03/27/24 03/27/24 History multivitamin 1 tab PO DAILY 03/27/24 03/27/24 History acetaminophen 500 mg tablet 1,000 mg (2 x 500 mg) PO Q8H pain 03/29/24 Rx #42 tabs cyclobenzaprine 10 mg tablet 10 mg PO TID PRN muscle spasm #20 03/29/24 Rx tabs ibuprofen 600 mg tablet 600 mg PO Q8H PRN pain #60 tabs 03/29/24 Rx lidocaine 4 % topical patch 1 patch topical DAILY PRN pain #30 03/29/24 Rx ea oxycodone 5 mg tablet 5 mg PO Q8H PRN severe pain (scale 03/29/24 Rx score 7-10) #9 tabs pantoprazole 40 mg tablet,delayed 40 mg PO BID #60 tabs 03/29/24 Rx release prednisone 10 mg tablet 10 mg PO DIRECTED #32 tabs 03/29/24 Rx Hospital Stay Data Consultations 03/27/24 15:03 Consult Orthopedic Spine Surgery Stat ED Decision to Admit Stat 03/27/24 19:18 Consult Orthopedic Spine Surgery Routine Diagnostic Imagining Performed 03/27/24 11:20 CT lumbar spine wo con Stat 03/27/24 15:03 MRI Spine [MR lumbar spine wo con] Stat Lumbar Spine CT 03/27/24 11:20 CT SCAN OF THE LUMBAR SPINE WITHOUT CONTRAST CLINICAL HISTORY: Low back pain. COMPARISON STUDY: No priors. TECHNIQUE: CT scan of the lumbar spine was performed from the lower thoracic spine to the sacrum. Images are reviewed in the axial, sagittal, and coronal planes. IV contrast was not administered for this examination. A dose lowering technique was utilized adhering to the principles of ALARA. CT DOSE: 1150.89 mGy.cm FINDINGS: The skeletal structures are well-mineralized. There is no evidence of fracture or malalignment involving the lumbar spine. Tiny anterior osteophytes are seen throughout. The transverse and spinous processes are intact. There is no spondylolysis. No lytic or blastic lesion is seen. The disc spaces are maintained. There is broad-based posterior disc bulge at L4-L5. This causes at least mild central canal stenosis at this level. Minimal posterior disc bulge is seen at L5-S1. There is no CT evidence of high-grade neural foraminal stenosis throughout the lumbar region. The visualized sacrum and bony pelvis appear intact. The paraspinous soft tissues are within normal limits. A normal appendix is partially visualized in the right lower quadrant. There is no retroperitoneal lymphadenopathy. IMPRESSION: 1. No acute bony abnormality is seen involving the lumbar spine. 2. Degenerative disc disease at L4-L5 and L5-S1 as above. ACT 112: Negative or not required by law. Dictated: 03/27/2024 11:34 AM Transcribed: 03/27/2024 12:31 PM Julio [id number] Electronically signed by: Kailash Espinoza M.D. 03/27/2024 12:31 PM Lumbar Spine MRI 03/27/24 15:03 LUMBAR SPINE MRI HISTORY: lumbar pain TECHNIQUE: Multiplanar multisequence MRI of the lumbar spine was performed without the use of contrast. COMPARISON: Lumbar spine CT 03/27/2024. FINDINGS: For the purpose of the report the L5-S1 disc space will be located on axial image 23 of 25. Straightening of the lumbar spine. No fracture or subluxation. Small Schmorl's node at the superior endplate of L4. Mild disc desiccation disc space narrowing at L4-L5. The remaining disc spaces are preserved. The conus terminates at the T12 level. Paravertebral soft tissues are unremarkable. Mild facet degenerative changes at L4-L5. L1-L2: No significant central canal or neural foraminal narrowing. L2-L3: No significant central canal or neural foraminal narrowing. L3-L4: Small broad-based posterior disc bulge without significant central canal or neural foraminal narrowing. L4-L5: Small broad-based posterior disc bulge with a 3 mm left paracentral focal disc protrusion. This results in mild central canal and mild bilateral neural foraminal narrowing. This disc protrusion impinges the transiting left L5 nerve roots on axial image 19. L5-S1: No significant central canal or neural foraminal narrowing. IMPRESSION: 1. Straightening of the lumbar spine. No fracture or subluxation. 2. A broad-based posterior disc bulge at L4-5 with a 3 mm left paracentral focal disc protrusion. This impinges the transiting left L5 nerve roots. 3. Additional degenerative changes as described above. ACT 112: Negative or not required by law. Electronically signed by: Henry Miguel M.D. 03/27/2024 4:44 PM Pending Results Patient Have Any Pending Studies at Discharge: No Discharge Instructions Given to Patient (Per Discharging Provider) Mr Arzola, Brody are were seen by the orthopedic surgeon who recommended working with physical therapy to help with your symptoms. Since you are travelling to another location, we recommend following up with your primary care provider for a referral for continued physical therapy. We are also discharging you with with the following pain regimen: -Please take the steroid prednisone taper as prescribed everyday until the medication course is complete -Please take the tylenol 1000mg three times a day SCHEDULED until with the steroids until you follow up with your primary care provider -Take the ibuprofen prescribed NEEDED for any additional pain -Take the muscle relaxer flexeril prescribed NEEDED for any muscle spasms/tightening -Take the oxycodone prescribed NEEDED every 8 hours for SEVERE pain only. Please try to not take it when using your home clonazepam. -apply lidocaine patch prescribed to painful area in the back Please keep close follow up with your primary care provider after discharge. Please do not hesitate to come back to the emergency room if your symptoms worsen or return. It was a pleasure taking care of you while you were here. Total Time Total Time Spent Total Time Spent (In Minutes): 75
== END 2024-03-29 12:22 | disposition home or self-care (01) | DRG 552 ==
LOC: ED 10:40 → INTOOBSV 15:05 → 3N 15:05 → SUATTDRO 15:05 → 3N 18:29